=== PATIENT | male | born 1950 | race Caucasian/White ===

== ENCOUNTER 2019-01-23 21:41 | Emergency (ER) | payer MEDICARE ==
[~2019-01-23] VITALS: Ht 180.3 cm; Wt 78.0 kg
[2019-01-23] MEDS ORDERED: COUMADIN (21:50)
[2019-01-23] MEDS ORDERED: MVI (21:50)
--- NOTE | 2019-01-23 21:58 | NUR ---
PT AA AND O TIMES 4, TO CT VIA STRETCHER AT HTIS TIME
[2019-01-23] MEDS ORDERED: METOPROLOL 1 MG/ML, 5ML ONE ×3 (22:01→22:52)
[2019-01-23] MEDS ORDERED: DIPH,PERTUSS(ACELL),TET VAC/PF 0.5 ML IM-VACC ONE (22:02)
[2019-01-23] MEDS ORDERED: LIDOCAINE 1%-EPI 1:100K, 20ML ONE (22:05)
[2019-01-23] MEDS: METOPROLOL 1 MG/ML, 5ML IVPush PRN ×3 (22:23→22:56)
[2019-01-23] MEDS ORDERED: DIPHTHERIA-TETANUS ADULT 0.5ML IM-VACC ONE (22:30)
[2019-01-23 22:35] LABS: BASOPHILS # (AUTO) 0.05 x10^3/uL (0-0.1); BASOPHILS % (AUTO) 1 % (0-1); EOSINOPHILS # (AUTO) 0.56 x10^3/uL (0-0.4); EOSINOPHILS % (AUTO) 6 % (1-7); LYMPHOCYTES # (AUTO) 3.03 x10^3/uL (1-3.4); LYMPHOCYTES % (AUTO) 33 % (22-44); MD NO; MEAN CORPUSCULAR HEMOGLOBIN 30.9 pg (27.5-34.5); MEAN CORPUSCULAR HGB CONC 33.7 g/dL (33.2-36.2); MEAN CORPUSCULAR VOLUME 91.5 fL (81-97); MEAN PLATELET VOLUME 7.3 fL (7.4-10.4); MONOCYTES # (AUTO) 0.68 x10^3/uL (0.2-0.8); MONOCYTES % (AUTO) 7 % (2-9); NEUTROPHILS # (AUTO) 4.84 x10^3/uL (1.8-6.8); NEUTROPHILS % (AUTO) 53 % (42-75); PLATELET COUNT 309 x10^3/uL (130-400); RED BLOOD COUNT 4.33 x10^6/uL (4.38-5.82); RED CELL DISTRIBUTION WIDTH 15.9 % (9.4-14.8)
--- NOTE | 2019-01-23 22:40 | NUR ---
PA TO ROOM AND INJECTS WITH STEVEN GILLIS THAT SHE SHE'S A VESSEL BLEEDING HOWEVER NEEDS TO HAVE CLEANED, TECH TO ROOM TO CLEAN
--- NOTE | 2019-01-23 22:41 | NUR ---
PT REMAINS AA AND O TIMES 4 AT THIS TIME, AT BEDSIDE
[2019-01-23 22:45] LABS: ALANINE AMINOTRANSFERASE 32 U/L (12-78); ALBUMIN 3.7 g/dL (3.4-5.0); ANION GAP 9 mmol/L (5-15); CHLORIDE 110 mmol/L (98-107); CREATININE 1.08 mg/dL (0.7-1.3)
[2019-01-23 22:50] LABS: ALKALINE PHOSPHATASE 95 U/L (45-117); BILIRUBIN,TOTAL 0.3 mg/dL (0.2-1.0); TOTAL PROTEIN 7.3 g/dL (6.4-8.2)
[2019-01-23 23:02] LABS: INTERNATIONAL NORMALIZED RATIO 9.38 (0.93-1.1); PROTHROMBIN TIME 90.4 Seconds (9.6-11.5)
--- NOTE | 2019-01-23 23:04 | NUR ---
[facility] REPORTS CRITICAL LABS TO . ELEVATED INR, PT
[2019-01-23] MEDS ORDERED: PHYTONADIONE 10 MG/ML, 1ML ONE (23:23)
[2019-01-23] MEDS ORDERED: PHYTONADIONE 10 MG/ML, 1ML SQ ONE (23:30)
--- NOTE | 2019-01-23 23:30 | NUR ---
VIT K GIVEN, HEAD IS DRESSED WITH PRESSURE DRESSING
--- NOTE | 2019-01-23 23:42 | NUR ---
HEAD REDRESSED, PT MOVING ALL AROUND, TOUCHING BANDAGE.
--- NOTE | 2019-01-24 00:22 | NUR ---
WARM BLANKETS GIVEN, NOT BLEEDING THROUGH BANDAGE AT THIS TIME, INTERMITTENT SLEEPING, AWAKEN VERBAL.
--- NOTE | 2019-01-24 01:00 | NUR ---
SBAR report received from [facility].
--- NOTE | 2019-01-24 01:16 | NUR ---
Pt woken up with verbal stimulation, pt c/o mild headache, no other complaint. Pt answers AAO questions appropriately.
[2019-01-24 03:25] VITALS: BP 109/63
--- NOTE | 2019-01-24 03:25 | NUR ---
RECEIVED REPORT FROM [facility]. PT RESTING IN BED. PT A&OX4 WHEN VERBALLY STIMULATED.
--- NOTE | 2019-01-24 04:25 | NUR ---
PT RESTING IN BED.
--- NOTE | 2019-01-24 05:00 | NUR ---
PATIENT RESTING IN BED. PT AWAKENS TO VERBAL STIMULI. PT A & OX4, BUT DROWSY AT THIS TIME.
--- NOTE | 2019-01-24 06:10 | NUR ---
pt up ambulatory and stable on feet. dressing placed on left forearm with skin tear. forehead bacitracin dressing applied. pt given taxi voucher. pt a&ox4.
== END 2019-01-24 06:13 | disposition home or self-care (01) ==
LOC: ED 23:40
DX: S01.81XA Laceration without foreign body of other part of head, initial encounter (principal); S51.811A Laceration without foreign body of right forearm, initial encounter; S21.111A Laceration without foreign body of right front wall of thorax without penetration into thoracic cavity, initial encounter; S20.311A Abrasion of right front wall of thorax, initial encounter; S50.811A Abrasion of right forearm, initial encounter; S00.81XA Abrasion of other part of head, initial encounter; F10.129 Alcohol abuse with intoxication, unspecified; R41.82 Altered mental status, unspecified; I48.91 Unspecified atrial fibrillation; R79.1 Abnormal coagulation profile; Y90.9 Presence of alcohol in blood, level not specified; W19.XXXA Unspecified fall, initial encounter; Y93.89 Activity, other specified; Y92.59 Other trade areas as the place of occurrence of the external cause; Y99.8 Other external cause status
CPT/HCPCS: 12031; 36415; 70450; 71250; 72125; 80053; 80307; 85025; 85610; 85730; 90471; 90714; 96372; 96374; 96376; 99285; J3430